=== PATIENT | female | born 1940 | race Caucasian/White ===

== ENCOUNTER 2017-11-26 00:34 | Inpatient (IN) | payer OTHER ==
[~2017-11-26] VITALS: Ht 167.6 cm; Wt 99.8 kg
[2017-11-26] VITALS (7 sets, daily range): BP systolic 92–164; BP diastolic 46–68
[~2017-11-26 00:34] MED LIST: AMLODIPINE BESYL5 MG PO; AUGMENTIN 875875 MG PO; B12INJ; BACTRIM DS TAB1 EACH PO; BENADRYL25 MG PO; CALCITRATE200 MG PO; CALCIUM 600 +1 EAC1 PO; CENTANY30 GM TP; COLACE100 MG; CYCLOPHOSPHAMID50 M1 PO; CYMBALTA60 MG PO; CYTOMEL 25 MCG25 MCG; DURAGESIC1 EAC2; FENTANYL PATCH75 MCG TP; FLEXERIL PO; GLUCOPHAGE1000 MG PO; GLUCOPHAGE500 MG PO; HIBICLENS120 ML; JANUVIA 50 MG T50 MG PO; JANUVIA100 MG PO; LEVOTHROID100 MC1; LEVOTHROID100 MC1 PO; LEVOTHROID175 MCG PO; LEVOTHYROXINE 0.1 MG PO; LISINOPRIL20 MG PO; LYRICA200 MG PO; LYRICA300 MG PO; MEVACOR40 MG PO; MINOCYCLINE HC100 M2; NAPROSYN500 MG PO; NEOMYCIN/BACIT3.5 G1; NEURONTIN 300300 M1 PO; NEURONTIN 300M300 M2 PO; NORCO 5-325 TA1 EACH PO; OXYCODONE HCL 55 MG PO; OXYCODONE HCL15 MG PO; PREDNISONE 10 M10 M1 PO; PREDNISONE 5 MG5 M1; PREDNISONE PO; VICODIN; VITAMIN D1000 UNI1 PO; VITAMINC500 PO
[2017-11-26 01:04] LABS: HEMATOCRIT 27.9 % (37.0-47.0); HEMOGLOBIN 8.5 gm/dL (12.0-15.0); MCH 21.3 pg (26.0-34.0); MCHC 30.4 g/dL (28.0-37.0); MCV 69.9 fL (80.0-100.0); MPV 8.9 fl. (7.2-11.1); NUCLEATED RBCS 0 /100WBC; PLATELET COUNT* 327 thou/uL (150-400); RDW-CV 19.4 % (10.5-14.5); WBC 13.8 thou/uL (4.0-11.0)
[2017-11-26 01:17] LABS: URINE BILIRUBIN NEGATIVE (Negative); URINE BLOOD 2+ (Negative); URINE CLARITY CLEAR; URINE COLOR YELLOW; URINE GLUCOSE-RANDOM NEGATIVE (Negative); URINE KETONES NEGATIVE (Negative); URINE LEUKOCYTES-REFLEX 1+ (Negative); URINE PROTEIN NEGATIVE (Negative); URINE UROBILINOGEN 0.2 E.U./dl (0.2-1.0)
[2017-11-26 01:19] LABS: CALCIUM 8.4 mg/dL (8.5-10.1)
[2017-11-26 01:19] LABS: URINE NITRITE-REFLEX POSITIVE (Negative)
[2017-11-26 01:23] LABS: ALBUMIN 3.4 g/dL (3.4-5.0); TOTAL BILIRUBIN 0.3 mg/dL (<0.1-1.0); TOTAL PROTEIN 6.8 g/dL (6.4-8.2)
[2017-11-26 02:01] LABS: ABSOLUTE BASOPHILS 0.1 thou/uL (0.0-0.2); ABSOLUTE LYMPHOCYTES 1.5 thou/uL (0.8-5.3); ABSOLUTE MONOCYTES 1.1 thou/uL (0.0-1.2); ANISOCYTOSIS 1+; HYPOCHROMASIA 2+; MICROCYTES 2+; PLATELET ESTIMATE ADEQUATE
[2017-11-26 02:26] LABS: CASTS None Seen /LPF (None Seen); SQUAMOUS 4-10 Moderate /LPF (0-3); URINE WBC-REFLEX 6-15 Few /HPF (0-5)
[2017-11-26 02:27] LABS: BACTERIA-REFLEX >30 Many /HPF (None Seen); CRYSTALS None Seen /LPF (None Seen)
[2017-11-27 03:59] LABS: HEMATOCRIT 21.5 % (37.0-47.0); MCHC 30.2 g/dL (28.0-37.0); MCV 69.6 fL (80.0-100.0); MPV 9.1 fl. (7.2-11.1); RBC 3.1 mil/uL (4.20-5.00); RDW-CV 19.3 % (10.5-14.5); WBC 12.1 thou/uL (4.0-11.0)
[2017-11-27 04:11] LABS: CALCIUM 7.8 mg/dL (8.5-10.1); CREATININE 1.1 mg/dL (0.6-1.3); MAGNESIUM 1.9 mg/dL (1.8-2.4)
[2017-11-27 04:13] LABS: HEMOGLOBIN 6.5 gm/dL (12.0-15.0)
[2017-11-27 04:58] LABS: HEMOGLOBIN 6.9 gm/dL (12.0-15.0)
[2017-11-27 09:30] VITALS: BP 121/53
[2017-11-27 14:10] VITALS: BP 120/42; BP 120/48; BP 133/59; BP 136/43
[2017-11-27 21:05] VITALS: BP 169/71
[2017-11-28 04:59] LABS: HEMATOCRIT 24.1 % (37.0-47.0); HEMOGLOBIN 7.5 gm/dL (12.0-15.0); MCH 21.8 pg (26.0-34.0); MCHC 31.3 g/dL (28.0-37.0); MCV 69.9 fL (80.0-100.0); MPV 9.7 fl. (7.2-11.1); RBC 3.44 mil/uL (4.20-5.00); RDW-CV 19.7 % (10.5-14.5); WBC 12.8 thou/uL (4.0-11.0)
[2017-11-28 05:14] LABS: ALBUMIN 2.8 g/dL (3.4-5.0); CALCIUM 8.3 mg/dL (8.5-10.1); CREATININE 0.7 mg/dL (0.6-1.3); MAGNESIUM 1.9 mg/dL (1.8-2.4); POTASSIUM 3.6 mmol/L (3.5-5.1); TOTAL BILIRUBIN 0.4 mg/dL (<0.1-1.0); TOTAL PROTEIN 5.7 g/dL (6.4-8.2)
[2017-11-28 08:00] VITALS: BP 114/64
--- NOTE | 2017-11-28 15:22 | EKG ---
[place] [address] ELECTROCARDIOGRAM REPORT Name: BECKIE PERKINS Room: [address] ADM IN M.R.#: [id number] Admission: 11/26/17 Attend Phys: Robby Joe, Discharge: Date of : 44 Report #: [id number] THIS REPORT FOR: //name// [facility] Test Date: 2017-11-28 Test Time: 09:05:27 Pat Name: BECKIE PERKINS Department: Room: [address] Gender: F [employer] In[employer]: JANN : 1940 Requested By: Eb Caba Order Number: [id number] Reading MD: Kevin Hahn Measurements Intervals [place] Rate: 91 P: 73 PA: 164 QRS: 10 QRSD: 86 T: 75 QT: 355 QTc: 437 Interpretive Statements Sinus rhythm Nonspecific T abnormalities, lateral leads Baseline wander in lead(s) I Compared to ECG 06/08/2012 17:45:22 T-wave abnormality now present Sinus tachycardia no longer present Electronically Signed On 11-28-2017 15:22:05 BLEMISH REMOVER by Kevin Hahn [email or web address] <ELECTRONICALLY SIGNED> By: Kevin Hahn MD, [facility] 11/28/17 1522 0905 0905 Kevin Hahn MD, [facility] /EPI
[2017-11-28 15:59] VITALS: BP 140/71
[2017-11-28 20:30] VITALS: BP 167/82
[2017-11-29 01:32] VITALS: BP 135/87
[2017-11-29 04:26] LABS: HEMATOCRIT 23.9 % (37.0-47.0); HEMOGLOBIN 7.8 gm/dL (12.0-15.0); MCH 22.4 pg (26.0-34.0); MCHC 32.4 g/dL (28.0-37.0); MCV 69.2 fL (80.0-100.0); MPV 9.3 fl. (7.2-11.1); RBC 3.46 mil/uL (4.20-5.00); WBC 9.7 thou/uL (4.0-11.0)
[2017-11-29 04:48] LABS: ALBUMIN 2.4 g/dL (3.4-5.0); CREATININE 0.8 mg/dL (0.6-1.3); MAGNESIUM 1.7 mg/dL (1.8-2.4); POTASSIUM 3.4 mmol/L (3.5-5.1); TOTAL BILIRUBIN 0.4 mg/dL (<0.1-1.0); TOTAL PROTEIN 5.8 g/dL (6.4-8.2)
[2017-11-29 08:20] VITALS: BP 157/68
[2017-11-29 10:48] VITALS: BP 157/68
--- NOTE | 2017-11-29 12:11 | CON ---
[address] [address] CONSULTATION Name: GREGORIOBECKIE STEELE Room: [address] ADM IN M.R.#: [id number] Admission: 11/26/17 Attend Phys: Robby Joe, Discharge: Date of : 44 Report #: [id number] THIS REPORT FOR: //name// CC: Familia Joe DATE OF SERVICE: 11/28/2017 ATTENDING PHYSICIAN: Dr. Saskia iWlliam. REASON FOR EVALUATION: Ischemic lower extremities complicated by multiple superficial ulcers, inflammatory eruption, also has a complicated urinary tract infection. HISTORY OF PRESENT ILLNESS: Chart reviewed, patient examined. This is a 77-year-old woman with history of known vasculopathy, has diabetes mellitus who is somewhat lethargic, at least mildly encephalopathic, is not able to give too much details, was admitted on the . She describes somewhat abrupt onset of right lower extremity pain, associated involuntary movements and muscle jerks. She is uncertain if she had fevers. She has had a diminished appetite with poor p.o. intake. Initially said breathing was okay, then restated that she has had some trouble. She was evaluated and was found to have leukocytosis with moderate pyuria. Lactic acid was 1.6, CRP of 52, sed rate of 23. Plain film of the right and left foot showed really no bony abnormalities. CT abdomen and pelvis, there was question of a right iliopsoas iliacus inflammatory process, perhaps hematoma. ABIs showed compromise of the right lower extremity with normal left-sided results. Urine culture now with growth of gram-negative rods. She has positive wound culture with growth of Staphylococcus aureus, tentatively methicillin susceptible. Started empirically on ceftriaxone and vancomycin, was given a dose of levofloxacin as well. ALLERGIES: None known. MEDICATIONS: Metformin, tramadol, ropinirole, ceftriaxone, p.r.n. analgesics and antiemetics, vancomycin, linagliptin, famotidine, calcium carbonate, prednisone 10 daily, insulin, levothyroxine, duloxetine, pregabalin. PAST MEDICAL HISTORY: History of diabetes with vasculopathy, coronary artery disease, hyperlipidemia, renal lithiasis, previous history of thyroid cancer, back surgery. SOCIAL HISTORY: Nonsmoker, no ethanol. FAMILY HISTORY: Noncontributory. REVIEW OF SYSTEMS: [place] [address] CONSULTATION Name: BECKIE PERKINS Room: [address] IN [facility].#: [id number] Admission: 11/26/17 Attend Phys: Robby Joe, Discharge: Date of : 44 Report #: [id number] PHYSICAL EXAMINATION: GENERAL: She is in moderate to marked distress at times during the exam, especially with manipulation of her lower extremities she retracts. She describes involuntary movement and notes severe pain. Overall, she is quite lethargic. She has got some tachypnea. She appears to be chronically ill, undernourished. VITAL SIGNS: Temperature 98.2, pulse 98, respirations 16, blood pressure 114/64. SKIN: Warm. It is dry to excess especially the lower extremities. NECK: Appears to be supple. LUNGS: Diminished breath sounds. Few scattered crackles. HEART: Regular. Borderline tachycardic, has a soft systolic murmur. ABDOMEN: Soft. There is no apparent tenderness, no peritoneal signs. EXTREMITIES: Lower extremity has appearance of ischemia. There are some multiple superficial wounds with eschar, does have wounds, particularly lower extremity there is one that actually bleeds easily on the left side through the lateral foot at the base on to the mid portion of the fifth digit. Really disallow me of doing any manipulation or palpation of the foot. I do not appreciate any fluctuance. Does not appear to have any deep seated ulcers, no overt gangrenous changes. GENITOURINARY: Deferred. RECTAL: Deferred. LABORATORY DATA: Electrolytes: Sodium 139, potassium 3.6, chloride 103, bicarbonate is 29, anion gap of 7, BUN and creatinine 16 and 0.7, glucose of 134, albumin of 2.8, total protein 5.7, estimated GFR of 82. LFTs unremarkable. CBC: White count 4.8, H and H 7.5 and 24.1, platelets of 250. Abdominal ultrasound showed low-density liver lesion. Cultures described above, presumptive MSSA. Urine culture, greater than 10-15 gram-negative rods. Blood cultures are sterile thus far. CT abdomen and pelvis noted the enlargement and/or thickening of the right iliopsoas, the right iliacus musculature with surrounding tissue strandings suggest intramuscular hematoma, adjacent inflammation. ASSESSMENT: Complicated urinary tract infection. Certainly, this may well be a complication of poor p.o. intake including fluids with bladder urine stasis. We will await results. Ceftriaxone is a reasonable choice. May give her a single dose of gentamicin as well pending more problematic bilateral lower extremities suggest ischemic type process, multiple wounds, really severe pain. It is hard to define whether it is all related to the distal lower extremities or perhaps has irritation due to the right psoas, although interestingly she retracts more with the left side exam as if that is more severe pain. Continue the vancomycin. We have culture evidence of Staphylococcus aureus. We will await final results. If it is not methicillin-resistant Staphylococcus aureus, we [address] [address] CONSULTATION Name: BECKIE PERKINS Room: [address] ADM IN M.R.#: [id number] Admission: 11/26/17 Attend Phys: Robby Joe, Discharge: Date of : 44 Report #: [id number] will probably narrow down therapy. She does appear to be quite tenuous at this point. We will monitor expectantly. <ELECTRONICALLY SIGNED> By: Capo Pugh MD 11/29/17 1211 1022 1330Capo Pugh MD /nt
--- NOTE | 2017-11-29 13:10 | CON ---
[address] [address] CONSULTATION Name: BECKIE PERKINS Room: [address] IN M.R.#: [id number] Admission: 11/26/17 Attend Phys: Robby Joe, Discharge: Date of : 44 Report #: [id number] THIS REPORT FOR: //name// CC: Familia Zamora Robby Joe DATE OF SERVICE: 11/26/2017 CHIEF COMPLAINT: Podiatric consultation for bilateral toe wounds with lower extremity pain and cellulitis. The patient is known to me from prior hospital admissions. She had hardware removal from her spine last year at [facility]. She has limited ambulation, she spends most of the day in a wheelchair. She is able to stand and walk short distances with a walker. She lives at home alone, her son-in-law does check on her frequently. She has diabetic peripheral neuropathy, and uses her feet to move around her house in the wheelchair as well as push open doors. She relates pain to both legs and feet. Right foot x-ray is negative for bone destruction. Arterial duplex Doppler negative for stenosis or significant vasculopathy. Blood cultures negative x 2. She is on parenteral vancomycin and ceftriaxone with good tolerance. She has been afebrile during her stay. Urine culture pending. LABORATORY DATA: WBC 13.8, RBC 4.0, hemoglobin 8.5, hematocrit 27.9, platelets 327, BUN 22, creatinine 1.0, glucose 171. PHYSICAL EXAMINATION: Temperature 98.1, pulse 103, respirations 16, blood pressure 92/46. The patient has multiple thickness wounds to the lesser toes bilaterally. The left third, fourth and fifth digits have the most involvement, with full thickness ulcerations with dry crusty scabs overlying them. There is localized inflammation consistent with cellulitis, and the toes are tender to the touch. The right second, third, fourth and fifth toes have smaller lesions without as much inflammation. She has palpable dorsalis pedis and posterior tibial pulses bilaterally. She has immediate digital capillary refill. She has +3 nonpitting edema to both legs, the left is slightly worse. Negative Homans' or Juarez sign either leg. No popliteal adenopathy or calf tenderness. IMPRESSION: Digital ulcerations with localized cellulitis. PLAN: I took an aerobic swab culture of the left third, fourth and fifth toes. The toes were cleansed and dressed with foam and Kerlix gauze. I will follow the patient during her hospitalization awaiting foot MRI to evaluate for osteomyelitis. <ELECTRONICALLY SIGNED> By: Dominic Hill DPM 11/29/17 1310 1049 1100Danorah Hill DPM /nt
--- NOTE | 2017-11-29 13:10 | CON ---
[address] [address] CONSULTATION Name: BECKIE PERKINS Room: [address] ADM IN M.R.#: [id number] Admission: 11/26/17 Attend Phys: Robby Joe, Discharge: Date of : 44 Report #: [id number] THIS REPORT FOR: //name// CC: Familia Zamora Robby Joe DATE OF SERVICE: 11/28/2017 CHIEF COMPLAINT: Followup of bilateral toe wounds complicated by diabetes mellitus with peripheral neuropathy and lumbar radiculopathy with prior back surgery and left toe cultures growing methicillin-sensitive Staph aureus. She is on parenteral ceftriaxone with good tolerance. Denies fevers, chills, nausea or malaise. Arterial Doppler of the extremities was negative for hemodynamically significant stenosis. Urine culture grew E. coli. She is currently not in a position to have her foot unwrapped. LABORATORY DATA: WBC 12.8, RBC 3.44, hemoglobin 7.5, hematocrit 24.1, platelets 250, BUN 16, creatinine 0.7, glucose 134. PHYSICAL EXAMINATION: Her dressing is dry and clean with no bleed through. ASSESSMENT AND PLAN: I am unable to unwrap the bandage since the patient is indisposed. I did briefly speak to her and I will examine her foot and change her bandage in the morning. I will consult Infectious Disease for antibiotic selection. <ELECTRONICALLY SIGNED> By: Dominic Hill DPM 11/29/17 1310 1748 [id number] Hill, JACQUELINE /tushar
[2017-11-29 15:26] VITALS: BP 142/74
[2017-11-30 00:51] VITALS: BP 161/77
[2017-11-30 07:09] LABS: HEMATOCRIT 28.8 % (37.0-47.0); HEMOGLOBIN 8.8 gm/dL (12.0-15.0); MCH 21.5 pg (26.0-34.0); MCHC 30.7 g/dL (28.0-37.0); MCV 70.2 fL (80.0-100.0); MPV 8.6 fl. (7.2-11.1); RBC 4.1 mil/uL (4.20-5.00); RDW-CV 20.2 % (10.5-14.5); WBC 11.3 thou/uL (4.0-11.0)
[2017-11-30 07:48] LABS: ALBUMIN 2.9 g/dL (3.4-5.0); CALCIUM 8.4 mg/dL (8.5-10.1); CREATININE 0.8 mg/dL (0.6-1.3); MAGNESIUM 2.1 mg/dL (1.8-2.4); POTASSIUM 3.1 mmol/L (3.5-5.1); TOTAL BILIRUBIN 0.5 mg/dL (<0.1-1.0); TOTAL PROTEIN 6.7 g/dL (6.4-8.2)
[2017-11-30 16:05] VITALS: BP 135/78
[2017-11-30 20:00] VITALS: BP 194/98
[2017-12-01 17:00] VITALS: BP 184/84
[2017-12-01 20:00] VITALS: BP 154/63
[2017-12-02 04:23] LABS: HEMATOCRIT 27.4 % (37.0-47.0); HEMOGLOBIN 8.7 gm/dL (12.0-15.0)
[2017-12-02 04:32] VITALS: BP 157/68
[2017-12-02 16:18] VITALS: BP 151/81
[2017-12-02 20:40] VITALS: BP 135/73
[2017-12-03 08:00] VITALS: BP 165/76
[2017-12-03 15:42] VITALS: BP 138/68
[2017-12-03 21:10] VITALS: BP 138/82
[2017-12-04 08:31] VITALS: BP 152/79
[2017-12-04 16:00] VITALS: BP 134/78
[2017-12-04 20:45] VITALS: BP 144/73
[2017-12-05 08:00] VITALS: BP 149/86
[2017-12-05 11:44] VITALS: BP 149/86
[2017-12-05] MEDS ORDERED: LIDOCAINE1 EACH TRANSDERM (11:58)
[2017-12-05] MEDS ORDERED: MELATONIN5 M1 PO (12:00)
[2017-12-05] MEDS ORDERED: NYAMYC15 GM TOP (12:04)
[2017-12-05] MEDS ORDERED: GABAPENTIN 100100 MG PO (12:06)
[2017-12-05] MEDS ORDERED: NIFEREX TABLET1 EACH PO (12:07)
[2017-12-05] MEDS ORDERED: IRON325 PO (12:12)
[2017-12-05] MEDS ORDERED: TRAMADOL 50 MG50 MG PO (12:12)
[2017-12-05] MEDS ORDERED: SENNA S TABLET1 EACH PO (12:13)
[2017-12-05] MEDS ORDERED: VANCOMYCIN750 MG/250 IV (12:15)
--- NOTE | 2017-12-06 12:49 | CON ---
[address] [address] CONSULTATION Name: BECKIE PERKINS Room: [address] IN M.R.#: [id number] Admission: 11/26/17 Attend Phys: Robby Joe, Discharge: 12/05/17 Date of : 44 Report #: [id number] THIS REPORT FOR: //name// CC: Familia Zamora Robby Joe DATE OF SERVICE: 11/29/2017 CHIEF COMPLAINT: Followup of ulcerations to the left dorsal third, fourth and fifth toes and the right second and fifth toes complicated by type 2 diabetes mellitus with peripheral neuropathy. She is scheduled for EGD and colonoscopy today for possible GI bleed, she has anemia. She is on parenteral ceftriaxone with good tolerance. I did consult infectious disease to manage her IV antibiotics, recent cultures grew methicillin-sensitive Staph aureus, she relates some left foot and toe pain. She has been afebrile with no constitutional symptoms. LABS: WBC 9.7, RBC 3.46, hemoglobin 7.8, hematocrit 23.9, platelets 259. BUN 14, creatinine 0.8. PHYSICAL EXAMINATION: Both lower extremities are improved with decreased inflammation to both legs and digits. The ulcerations to the left dorsal third, fourth and fifth toes have decreased inflammation with more red granulation and less slough. There is no exposed bone, tendon or joint. The right second and fifth toe wounds are rather dry with minimal inflammation and no nathen cellulitis to them, less inflammation to both legs as well. Feet are warm with palpable pedal pulses, no pallor or cyanosis. IMPRESSION: Toe ulcerations to both feet, resolving cellulitis, urinary tract infection, diabetes mellitus with peripheral neuropathy, and anemia. PLAN: I cleansed the wounds and placed silver foam and Kerlix to them. Reviewed vascular surgery's note, no vascular intervention recommended. I do not recommend any formal wound debridement in the operating room, and there is no indication for toe amputation. We will proceed with topical wound care and antibiotics. <ELECTRONICALLY SIGNED> By: Dominic Hill DPM 12/06/17 1249 0834 0946Danorah Hill DPM /nt
--- NOTE | 2017-12-07 14:50 | CON ---
[address] [address] CONSULTATION Name: GREGORIOBECKIE STEELE Room: [address] IN M.R.#: [id number] Admission: 11/26/17 Attend Phys: Robby Jeo, Discharge: 12/05/17 Date of : 44 Report #: [id number] THIS REPORT FOR: //name// CC: Familia Zamora DO Robby Joe DICTATED BY: Ana Maria Wiseman [facility] DATE OF SERVICE: 11/27/2017 Please note at the time of this dictation, the patient was seen and physically examined by myself. REASON FOR CONSULTATION: Acute anemia. HISTORY OF PRESENT ILLNESS: This is a 77-year-old female presented to the emergency room with having right leg pain, which was persistent and she had some jerking movement noted with this as well. The patient states that she does not recall ever having an EGD or colonoscopy done in her past. She does take NSAIDs on a nightly basis to help she says with the jerking and some of the pain along with her other medications. She is unclear as to how much she is taking, but it has been on a fairly consistent basis, is gathering from her son. She denies any nausea, vomiting, difficulty swallowing, or any abdominal pain. Denies any issues with her bowels, she states she goes daily, soft and formed. She has not noticed any black or tarry stools or any bright red blood. She states she has never been told before that she was anemic either. She did see her PCP, she thought a couple of months ago and they did blood work and she was never told that she had any problems at that time. ALLERGIES: No known drug allergies. MEDICATIONS FROM HOME: Include Lyrica, Cymbalta, prednisone, oxycodone, Glucophage, Januvia, Caltrate and Synthroid. PAST MEDICAL HISTORY: Diabetes, hyperlipidemia, hypertension, diabetic neuropathy, depression, B12 deficiency, peripheral vascular disease, significant coronary artery disease. PAST SURGICAL HISTORY: She has had stent placement, appendectomy, thyroidectomy, history of kidney stones, thyroid cancer, and back surgery at . FAMILY HISTORY: Negative for any GI or female cancers per the patient. SOCIAL HISTORY: The patient is in a wheelchair due to her peripheral neuropathy and back discomfort, but lives by herself. Denies any alcohol, [place] [address] CONSULTATION Name: BECKIE PERKINS Room: [address]#: [id number] Admission: 11/26/17 Attend Phys: Robby Joe, Discharge: 12/05/17 Date of : 44 Report #: [id number] illegal drug use at this time. REVIEW OF SYSTEMS: Twelve-point review of systems is essentially negative except what is mentioned in the HPI. PHYSICAL EXAMINATION: VITAL SIGNS: Temperature 36.7, pulse 95, respirations 19, and blood pressure 121/53. HEART: Regular rate and rhythm. LUNGS: Clear, but slightly diminished. ABDOMEN: Soft, positive bowel sounds in all 4 quadrants with no masses or tenderness noted. LABS: Hemoglobin on admission was 8.5, she is down to 6.5; hematocrit 23, white count is 12.1 and platelets 226. Sodium 143, potassium 4, chloride 108, CO2 of 28, BUN 17, creatinine 1.7, GFR is 48 with a glucose of 151. Her iron is 15, TIBC is 283. Percentage saturation is 5. Ferritin is 43. B12 is 612. Positive urine for blood and nitrites noted as well. ESR was 23. CT of the abdomen and pelvis showed an indeterminate 2 cm hypodense liver lesion, otherwise essentially negative. IMPRESSION: 1. Acute anemia, microcytic. 2. Leukocytosis. 3. Nonsteroidal anti-inflammatory drug use regularly. 4. Liver lesion. 5. Peripheral vascular disease, severe. PLAN: 1. Ultrasound results pending. 2. Labs, we will get a soluble transferrin level and recheck CBC and CMP in the a.m. 3. We will await above results and then consider EGD and colonoscopy on Monday if ultrasound is negative. 4. Monitor for overt bleeding. Thank you for allowing us to participate in this patient's care. Please do not hesitate to call with any questions in regard to this consult. I have personally seen and examined the patient and reviewed the labs and imaging studies. The patient reports that she came into the hospital because of her right eye was hurting. She was found to have a right thigh hematoma. She also has diabetic foot ulcer. The patient found to have anemia with hemoglobin of 6.5. She has received packed RBC and we are waiting her hemoglobin results. She reports that she has never had endoscopic evaluation but denies any GI symptoms as she denies hematochezia, melena, change in stool habits and caliber. [address] [address] CONSULTATION Name: BECKIE PERKINS Room: [address] IN .R.#: [id number] Admission: 11/26/17 Attend Phys: Robby Joe, Discharge: 12/05/17 Date of : 44 Report #: [id number] She also denies any dysphagia or odynophagia or GERD. Iron study was obtained, which shows that she has iron saturation of 5%. We will go ahead and perform an upper and lower endoscopy to further evaluate her anemia. We will make further recommendation after this is complete. <ELECTRONICALLY SIGNED> By: Eb Caba MD 12/07/17 1450 1231 1742Eb Caba MD /nt
--- NOTE | 2017-12-07 14:50 | CON ---
[address] [address] CONSULTATION Name: BECKIE PERKINS Room: [address] IN M.R.#: [id number] Admission: 11/26/17 Attend Phys: Robby Joe, Discharge: 12/05/17 Date of : 42 Report #: [id number] THIS REPORT FOR: //name// CC: Familia Zamora Robby Joe DATE OF SERVICE: 11/27/2017 ADDENDUM TO CONSULTATION CONSULTATION NUMBER: [id number]. I have personally seen and examined the patient and reviewed the labs and imaging studies. The patient reports that she came into the hospital because of her right eye was hurting. She was found to have a right thigh hematoma. She also has diabetic foot ulcer. The patient found to have anemia with hemoglobin of 6.5. She has received packed RBC and we are waiting her hemoglobin results. She reports that she has never had endoscopic evaluation but denies any GI symptoms as she denies hematochezia, melena, change in stool habits and caliber. She also denies any dysphagia or odynophagia or GERD. Iron study was obtained, which shows that she has iron saturation of 5%. We will go ahead and perform an upper and lower endoscopy to further evaluate her anemia. We will make further recommendation after this is complete. <ELECTRONICALLY SIGNED> By: Eb Caba MD 12/07/17 1450 1702 2053Eb Caba MD /tushar
== END 2017-12-05 13:40 | DRG 638 ==
LOC: M.ERS 00:34 → M.TBA-ER 03:29 → M.ORTHSURG 03:29
PROVIDERS: Emergency Medicine; Internal Medicine; ADMIT Family Medicine
PROC: 30233N1 Transfusion of Nonautologous Red Blood Cells into Peripheral Vein, Percutaneous Approach (ICD-10-PCS; 2017-11-27)
PROC: 0DJD8ZZ Inspection of Lower Intestinal Tract, Via Natural or Artificial Opening Endoscopic (ICD-10-PCS; 2017-11-29)
PROC: 0DJ08ZZ Inspection of Upper Intestinal Tract, Via Natural or Artificial Opening Endoscopic (ICD-10-PCS; 2017-11-29)
PROC: 05HB33Z Insertion of Infusion Device into Right Basilic Vein, Percutaneous Approach (ICD-10-PCS; principal; 2017-12-02)
DX: E11.621 Type 2 diabetes mellitus with foot ulcer (principal); N39.0 Urinary tract infection, site not specified; E44.1 Mild protein-calorie malnutrition; R65.10 Systemic inflammatory response syndrome (SIRS) of non-infectious origin without acute organ dysfunction; M86.8X7 Other osteomyelitis, ankle and foot; L97.519 Non-pressure chronic ulcer of other part of right foot with unspecified severity; E78.5 Hyperlipidemia, unspecified; I10 Essential (primary) hypertension; F32.9 Major depressive disorder, single episode, unspecified; E11.40 Type 2 diabetes mellitus with diabetic neuropathy, unspecified; I25.10 Atherosclerotic heart disease of native coronary artery without angina pectoris; D72.829 Elevated white blood cell count, unspecified; E11.51 Type 2 diabetes mellitus with diabetic peripheral angiopathy without gangrene; K76.9 Liver disease, unspecified; L97.529 Non-pressure chronic ulcer of other part of left foot with unspecified severity; L03.032 Cellulitis of left toe; L03.031 Cellulitis of right toe; G25.81 Restless legs syndrome; D50.9 Iron deficiency anemia, unspecified; B96.20 Unspecified Escherichia coli [E. coli] as the cause of diseases classified elsewhere; E11.69 Type 2 diabetes mellitus with other specified complication; K57.30 Diverticulosis of large intestine without perforation or abscess without bleeding; Z68.35 Body mass index [BMI] 35.0-35.9, adult; Z95.5 Presence of coronary angioplasty implant and graft; Z90.49 Acquired absence of other specified parts of digestive tract; Z87.442 Personal history of urinary calculi; Z85.850 Personal history of malignant neoplasm of thyroid; Z79.899 Other long term (current) drug therapy; Z79.1 Long term (current) use of non-steroidal anti-inflammatories (NSAID)

== ENCOUNTER → 2017-12-13 | Outpatient (CLI) | payer OTHER ==
[~2017-12-13] MED LIST changes: +GABAPENTIN 100100 MG PO; +IRON325 PO; +LIDOCAINE1 EACH TRANSDERM; +MELATONIN5 M1 PO; +NIFEREX TABLET1 EACH PO; +NYAMYC15 GM TOP; +SENNA S TABLET1 EACH PO; +TRAMADOL 50 MG50 MG PO; +VANCOMYCIN750 MG/250 IV
== END ==
LOC: M.WC 13:00
DX: E11.621 Type 2 diabetes mellitus with foot ulcer (principal); L97.511 Non-pressure chronic ulcer of other part of right foot limited to breakdown of skin; L97.521 Non-pressure chronic ulcer of other part of left foot limited to breakdown of skin; E78.5 Hyperlipidemia, unspecified; E11.40 Type 2 diabetes mellitus with diabetic neuropathy, unspecified; F32.9 Major depressive disorder, single episode, unspecified; E11.69 Type 2 diabetes mellitus with other specified complication; M86.8X7 Other osteomyelitis, ankle and foot; Z85.828 Personal history of other malignant neoplasm of skin

== ENCOUNTER → 2017-12-20 | Outpatient (CLI) | payer OTHER ==
--- NOTE | 2017-12-21 13:08 | CON ---
[address] [address] CONSULTATION Name: BECKIE PERKINS Room: [facility] M.R.#: [id number] Admission: 12/20/17 Attend Phys: Dominic Hill DPM Discharge: Date of : 44 Report #: [id number] THIS REPORT FOR: //name// CC: Dominic Hill Familia Vasquezzahra DATE OF SERVICE: 12/20/2017 INFECTIOUS DISEASE CONSULTATION FOLLOWUP ATTENDING PHYSICIAN: Dominic Hill DPM HISTORY OF PRESENT ILLNESS: He is here for bilateral foot superficial ulcers likely on the basis of ischemia, had complicating secondary infection. She was hospitalized and subsequently discharged, received roughly 2-1/2 weeks of parenteral therapy with vancomycin for combination of Staphylococcus aureus as well as coag-negative Staph, the latter being likely also resistant. Generally has been doing somewhat better. She has some degree of pain, although it is seemingly manageable. The wounds itself showed some degree of healing. ASSESSMENT AND PLAN: Skin and soft tissue infection. We will discontinue the parenteral therapy at this point, could remove the PICC line. We will see her back as needed. <ELECTRONICALLY SIGNED> By: Capo Pugh MD 12/21/17 1308 2395 [id number] Pugh MD /nt
== END ==
LOC: M.WC 02:06
DX: E11.621 Type 2 diabetes mellitus with foot ulcer (principal); L97.521 Non-pressure chronic ulcer of other part of left foot limited to breakdown of skin; L97.511 Non-pressure chronic ulcer of other part of right foot limited to breakdown of skin; L89.893 Pressure ulcer of other site, stage 3; E11.51 Type 2 diabetes mellitus with diabetic peripheral angiopathy without gangrene; E11.69 Type 2 diabetes mellitus with other specified complication; M86.8X7 Other osteomyelitis, ankle and foot; E11.40 Type 2 diabetes mellitus with diabetic neuropathy, unspecified; I10 Essential (primary) hypertension; I25.10 Atherosclerotic heart disease of native coronary artery without angina pectoris; M20.40 Other hammer toe(s) (acquired), unspecified foot; E78.5 Hyperlipidemia, unspecified; G60.3 Idiopathic progressive neuropathy; F32.9 Major depressive disorder, single episode, unspecified; Z85.850 Personal history of malignant neoplasm of thyroid

== ENCOUNTER → 2018-01-03 | Outpatient (CLI) | payer OTHER | LOC: M.WC 01:39 | DX: E11.621 Type 2 diabetes mellitus with foot ulcer (principal); L97.511 Non-pressure chronic ulcer of other part of right foot limited to breakdown of skin; L97.521 Non-pressure chronic ulcer of other part of left foot limited to breakdown of skin; L89.893 Pressure ulcer of other site, stage 3; E11.51 Type 2 diabetes mellitus with diabetic peripheral angiopathy without gangrene; M20.40 Other hammer toe(s) (acquired), unspecified foot; G60.3 Idiopathic progressive neuropathy; E78.5 Hyperlipidemia, unspecified; I10 Essential (primary) hypertension; E11.40 Type 2 diabetes mellitus with diabetic neuropathy, unspecified; F32.9 Major depressive disorder, single episode, unspecified; I25.10 Atherosclerotic heart disease of native coronary artery without angina pectoris; E11.69 Type 2 diabetes mellitus with other specified complication; M86.8X7 Other osteomyelitis, ankle and foot; Z85.828 Personal history of other malignant neoplasm of skin ==

== ENCOUNTER → 2018-01-17 | Outpatient (CLI) | payer OTHER | LOC: M.WC 03:07 | DX: E11.621 Type 2 diabetes mellitus with foot ulcer (principal); L97.521 Non-pressure chronic ulcer of other part of left foot limited to breakdown of skin; L89.893 Pressure ulcer of other site, stage 3; E11.40 Type 2 diabetes mellitus with diabetic neuropathy, unspecified; E11.51 Type 2 diabetes mellitus with diabetic peripheral angiopathy without gangrene; M20.40 Other hammer toe(s) (acquired), unspecified foot; G60.3 Idiopathic progressive neuropathy; E78.5 Hyperlipidemia, unspecified; F32.9 Major depressive disorder, single episode, unspecified; E11.69 Type 2 diabetes mellitus with other specified complication; M86.8X7 Other osteomyelitis, ankle and foot; Z85.828 Personal history of other malignant neoplasm of skin ==